=== PATIENT | male | born 1975 | race Caucasian/White ===

== ENCOUNTER 2016-12-12 08:01 | Emergency (ER) | payer MEDICAID ==
--- NOTE | 2016-12-12 09:33 | ED ---
Lower Extremity - History of Current Complaint Chief Complaint: EDExtremityLower Stated Complaint: RIGHT ANKLE PAIN Hx Obtained From: Patient Mechanism Of Injury: Twisted Onset/Duration: Still Present Severity Initially: Moderate Severity Currently: Severe Pain Intensity: 8 Associated Signs And Symptoms: Positive: Swelling Aggravating Factor(s): Standing, Movement Able to Bear Weight: Yes - Allergies/Home Medications Allergies/Adverse Reactions: Allergies Allergy/AdvReac Type Severity Reaction Status Date / Time Naproxen [From Aleve] Allergy Hives Verified 12/12/16 08:08 PMH/Surg Hx/FS Hx/Imm Hx Infectious Disease History: Denies: Traveled Outside the [place] in Last 30 Days Physical Exam Vital Signs On Initial Exam: Initial Vitals Temp Pulse Resp BP 97.7 F 79 18 156/85 12/12/16 08:05 12/12/16 08:05 12/12/16 08:05 12/12/16 08:05 Diagnostics - Vital Signs Vital Signs Temp Pulse Resp BP 12/12/16 08:05 97.7 F 79 18 156/85 - Laboratory Lab Statement: Any lab studies that have been ordered have been reviewed, and results considered in the medical decision making process.
--- NOTE | 2016-12-12 10:33 | RAD ---
Indication: RIGHT ankle lateral pain and swelling following inversion injury playing soccer. Comparison: No relevant prior exams available on the [facility] for comparison. Technique: AP, mortise, and lateral views RIGHT ankle. Report: Normal articular alignment. No cortical disruption or suspicious trabecular irregularity to suggest fracture. 0.5 cm transverse chronic appearing osteochondral lesion at the superior medial margin of the dome of the talus with suggestion of ossification of the overlying hyaline articular cartilage. No acute osteochondral fracture evident. No suggestion of talocrural joint effusion. Mild soft tissue swelling over the lateral malleolus. IMPRESSION: 1. Mild soft tissue swelling over the lateral malleolus without acute fracture or articular malalignment. 2. Chronic appearing osteochondral lesion at the superior medial margin of the dome of the talus.
--- NOTE | 2016-12-12 11:35 | RAD ---
INDICATION: Right foot injury. TECHNIQUE: 3 views of the right foot were obtained. FINDINGS: The bones are in normal alignment. No fracture is seen. Joint spaces appear maintained. IMPRESSION: NO EVIDENCE FOR FRACTURE.
[2016-12-12 11:47] VITALS: BP 128/75
--- NOTE | 2016-12-12 18:11 | ED ---
Neil Sofia Billy, scribed for Franklyn Mascorro MD on 12/12/16 at 1020 . Lower Extremity - HPI Summary HPI Summary: Patient is a 41 year-old male coming to [facility] for evaluation of right ankle pain since last night. He states that he was playing soccer with his children when he accidentally inverted and twisted the ankle. He is, however, able to bear weight, and he states that the pain is actually improved with very light pressure while walking. - History of Current Complaint Chief Complaint: EDExtremityLower Stated Complaint: RIGHT ANKLE PAIN Time Seen by Provider: 12/12/16 10:08 Hx Obtained From: Patient Mechanism Of Injury: Twisted Onset of Pain: Immediate Onset/Duration: Still Present Severity Initially: Moderate Severity Currently: Moderate Pain Intensity: 8 Pain Scale Used: 0-10 Numeric Timing: Constant Location: Is Discrete @ - right ankle Associated Signs And Symptoms: Positive: Swelling Alleviating Factor(s): Other - Improved while applying mild pressure when walking Able to Bear Weight: Yes - Allergies/Home Medications Allergies/Adverse Reactions: Allergies Allergy/AdvReac Type Severity Reaction Status Date / Time Naproxen [From Aleve] Allergy Hives Verified 12/12/16 08:08 PMH/Surg Hx/FS Hx/Imm Hx Sensory History: Denies: Hx Deafness Opthamlomology History: Denies: Hx Legally Blind Infectious Disease History: Denies: Traveled Outside the [place] in Last 30 Days - Family History Known Family History: Positive: Diabetes - Social History Alcohol Use: None Hx Substance Use: No Substance Use Type: Reports: None Review of Systems Negative: Fever Musculoskeletal: Other - right ankle pain All Other Systems Reviewed And Are Negative: Yes Physical Exam - Summary Physical Exam Summary: Vital signs: reviewed General: Patient is comfortable lying in stretcher with no signs of distress. Patient walked into the ED room. HEENT: within normal limits Lungs: CTA B/L CVS: S1 & S2 present. No murmurs appreciated. ABDOMEN: Soft, non-tender. No signs of distention. No rebound no guarding, and no masses palpated. Bowel sounds are normal. EXTREMITIES: FROM in all major joints, positive swelling in the right lateral maleolus. NEURO: Alert and oriented x 3. No acute neurological deficits. Speech is normal and follows commands. SKIN: Dry and warm Triage Information Reviewed: Yes Vital Signs On Initial Exam: Initial Vitals Temp Pulse Resp BP 97.7 F 79 18 156/85 12/12/16 08:05 12/12/16 08:05 12/12/16 08:05 12/12/16 08:05 Vital Signs Reviewed: Yes Diagnostics - Vital Signs Vital Signs Temp Pulse Resp BP Pulse Ox 12/12/16 09:59 98.2 F 72 16 144/81 100 12/12/16 08:05 97.7 F 79 18 156/85 - Laboratory Lab Statement: Any lab studies that have been ordered have been reviewed, and results considered in the medical decision making process. - Radiology Right Ankle Radiology Interpretation Completed By: Radiologist - 1. Mild soft tissue swelling over the lateral malleolus without acute fracture or articular malalignment. 2. Chronic appearing osteochondral lesion at the superior medial margin of the dome of the talus. Foot XR Radiology Interpretation Completed By: Radiologist - No evidence for fracture. Lower Extremity Course/Dx - Course Assessment/Plan: Patient is a 41 year-old male coming to [facility] [place] for evaluation of right ankle pain since last night. He states that he was playing soccer with his children when he accidentally inverted and twisted the ankle. He is, however , able to bear weight, and he states that the pain is actually improved with very light pressure while walking. XRay of the ankle and foot shows no fracture or dislocation. The patient did not require any pain medications as he is ambulating on his own. The patient was given an ELÍAS bandage and cane to follow up with PCP. - Diagnoses Provider Diagnoses: Ankle sprain Discharge - Discharge Plan Condition: Stable Disposition: HOME Patient Education Materials: Ankle Sprain (ED) Referrals: [facility] [place] PHYSICIAN REFERRAL [Outside] The documentation as recorded by the Neil arcos Billy accurately reflects the service I personally performed and the decisions made by me, Franklyn Mascorro MD.
== END 2016-12-12 11:46 | disposition home or self-care (01) ==
LOC: ED 08:01
DX: S93.401A Sprain of unspecified ligament of right ankle, initial encounter (principal); M25.571 Pain in right ankle and joints of right foot; X58.XXXA Exposure to other specified factors, initial encounter; Y93.9 Activity, unspecified; Y92.9 Unspecified place or not applicable
CPT/HCPCS: 99282

== ENCOUNTER 2018-01-12 09:11 | Emergency (ER) | payer MEDICAID, OTHER ==
--- NOTE | 2018-01-12 11:37 | RAD ---
HISTORY: pain, left elbow pain COMPARISONS: None VIEWS: 2, Frontal and lateral views of the left elbow FINDINGS: BONE DENSITY: Normal. BONES: There is no displaced fracture. JOINTS: There is no arthropathy. There is no posterior supracondylar fat pad to suggest a joint effusion. ALIGNMENT: There is no dislocation. SOFT TISSUES: Unremarkable. OTHER FINDINGS: None. IMPRESSION: NO ACUTE OSSEOUS INJURY. IF SYMPTOMS PERSIST, RECOMMEND REPEAT IMAGING.
--- NOTE | 2018-01-12 12:59 | ED ---
Upper Extremity Pain - HPI Summary HPI Summary: Pt here w/ Lt elbow pain which was triggered months ago by lifting a heavy cooler at work. [place] acute pain then and has had pain w/ lifting using his Lt arm since. Denies numbness/tingling/weakness and has FROM. Concerned about lingering pain with gripping and carrying. Denies pain w/o use and is sleeping well. Came here today as he reports it wasn't a good weather day to work - has a PCP but he's never been so decided to come to ED for evaluation. - History of Current Complaint Chief Complaint: EDExtremityUpper Stated Complaint: LT ELBOW PAIN Time Seen by Provider: 01/12/18 11:46 Hx Obtained From: Patient - Allergies/Home Medications Allergies/Adverse Reactions: Allergies Allergy/AdvReac Type Severity Reaction Status Date / Time naproxen Allergy Hives Verified 01/12/18 09:23 Home Medications: Home Medications NK [No Home Medications Reported] 01/12/18 [History Confirmed 01/12/18] PMH/Surg Hx/FS Hx/Imm Hx Previously Healthy: Yes Endocrine/Hematology History: Denies: Hx Anticoagulant Therapy, Hx Blood Disorders Sensory History: Denies: Hx Legally Blind, Hx Deafness Opthamlomology History: Denies: Hx Legally Blind Infectious Disease History: No Infectious Disease History: Denies: Traveled Outside the [place] in Last 30 Days - Family History Known Family History: Positive: Diabetes - Social History 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 Negative: Decreased ROM, Edema Skin: Negative Negative: Bruising Neurological: Negative Negative: Weakness, Paresthesia, Numbness Psychological: Normal All Other Systems Reviewed And Are Negative: Yes Physical Exam Triage Information Reviewed: Yes Vital Signs On Initial Exam: Initial Vitals Temp Pulse Resp BP Pulse Ox 97.8 F 76 16 137/89 96 01/12/18 09:21 01/12/18 09:21 01/12/18 09:21 01/12/18 09:21 01/12/18 09:21 Vital Signs Reviewed: Yes Appearance: Positive: Well-Appearing, No Pain Distress, Well-Nourished Skin: Positive: Warm, Skin Color Reflects Adequate Perfusion, Dry - no erythema , no ecchymosis over effected area Head/Face: Positive: Normal Head/Face Inspection Eyes: Positive: EOMI ENT: Positive: Hearing grossly normal Neck: Positive: Other: - FROM w/o pain or restriction Respiratory/Lung Sounds: Positive: Breath Sounds Present Cardiovascular: Positive: Pulses are Symmetrical in both Upper and Lower Extremities - no edema in UE's Musculoskeletal: Positive: Normal, Strength/ROM Intact - no areas are palpably tender - he reports some pain in forearm with full gripping strength Neurological: Positive: Normal, Sensory/Motor Intact, Alert, Oriented to Person Place, Time, CN Intact II-III Psychiatric: Positive: Normal Diagnostics - Vital Signs Vital Signs Temp Pulse Resp BP Pulse Ox 01/12/18 09:21 97.8 F 76 16 137/89 96 - Laboratory Lab Statement: Any lab studies that have been ordered have been reviewed, and results considered in the medical decision making process. Course/Dx - Diagnoses Provider Diagnoses: Elbow strain Discharge - Sign-Out/Discharge Documenting (check all that apply): Discharge/Admit/Transfer - Discharge Plan Condition: Stable Disposition: HOME Patient Education Materials: Elbow Sprain (ED) Referrals: Franklyn Mckee MD [Primary Care Provider] - Additional Instructions: You appear to have a strain/sprain of your Left elbow. Since you have ongoing pain over the past many months, it is advised that you seek follow-up with your PCP. From there, it may be decided if you would benefit from physical therapy and/or orthopedic referral. Rest, use heat with gentle stretches alternating with ice, ibuprofen with food alternating with acetaminophen as needed for pain. *If you develop numbness, tingling, weakness into your arm, seek medical attention sooner or return to ED - Billing Disposition and Condition Condition: STABLE Disposition: Home
[2018-01-12 13:10] VITALS: BP 136/85
== END 2018-01-12 13:09 | disposition home or self-care (01) ==
LOC: ED 09:11
DX: M25.522 Pain in left elbow (principal); X50.0XXA Overexertion from strenuous movement or load, initial encounter; Y92.9 Unspecified place or not applicable; Z88.6 Allergy status to analgesic agent
CPT/HCPCS: 99282

== ENCOUNTER 2018-12-30 07:34 | Emergency (ER) | payer OTHER ==
--- NOTE | 2018-12-30 07:57 | ED ---
HPI Chest Pain - HPI Summary HPI Summary: Pt is a 43 y/o M presenting to the ED with a chief complaint of chest pain ( shaky inside) onset around 0400, with his daughter Karyna. He states he woke up with a panic attack that did not go away over time, with associated chest tightness/shakiness, mild shortness of breath, tightness in his L arm and all fingers, and lightheadedness. He denies diaphoresis, nausea, SI/HI, or recent trauma. He states he has hx of anxiety but his panic attacks come on randomly and do not usually present with chest/arm tightness, and this one "lasted longer" so he began worrying it was an issue with his heart. He used to see a counselor for his anxiety and was on an SSRI and Klonopin, but he has stopped going to his counselor because he is in a better place than when he began. Pt hasn't seen his PCP (Dr. Mckee) recently. He did not take any medication SIDE PULLER, and does not take any daily medications. He is a former smoker. - History of Current Complaint Chief Complaint: EDChestPainROMI Time Seen by Provider: 12/30/18 07:42 Hx Obtained From: Patient Onset/Duration: Started Hours Ago, Still Present Timing: Intermittent, Lasting Hours Initial Severity: Moderate Current Severity: Moderate Pain Intensity: 4 Pain Scale Used: 0-10 Numeric Chest Pain Location: Diffuse Chest Pain Radiates: Yes Chest Pain Radiates To:: Arm - L Character: Tightness Aggravating Factor(s): Nothing Alleviating Factor(s): Nothing Associated Signs and Symptoms: Positive: Chest Pain, Anxiety, Shortness of Breath, Lightheadedness, Other: - L arm tightness. Negative: Diaphoresis, Nausea - Allergy/Home Medications Allergies/Adverse Reactions: Allergies Allergy/AdvReac Type Severity Reaction Status Date / Time naproxen Allergy Hives Verified 01/12/18 09:23 PMH/Surg Hx/FS Hx/Imm Hx Previously Healthy: Yes Endocrine/Hematology History: Denies: Hx Anticoagulant Therapy, Hx Blood Disorders, Hx Diabetes Cardiovascular History: Denies: Hx Myocardial Infarction History: Denies: Hx Acute Renal Failure Sensory History: Denies: Hx Legally Blind, Hx Deafness Opthamlomology History: Denies: Hx Legally Blind Psychiatric History: Reports: Hx Anxiety Infectious Disease History: No Infectious Disease History: Denies: Traveled Outside the [place] in Last 30 Days - Family History Known Family History: Positive: Diabetes - Social History Occupation: Employed Full-time - [employer] Lives: With Family Alcohol Use: Occasionally Hx Substance Use: No Substance Use Type: Reports: None Hx Tobacco Use: No Smoking Status (MU): Former Smoker - quit 08/2017 Review of Systems Constitutional: Negative Negative: Skin Diaphoresis Eyes: Negative ENT: Negative Positive: Chest Pain Positive: Shortness Of Breath Negative: Nausea Positive: Other - L arm tightness Neurological: Other - lightheadedness Positive: Anxious All Other Systems Reviewed And Are Negative: Yes Physical Exam - Summary Physical Exam Summary: Vital Signs Reviewed: Yes A+Ox3, hyperventialting and anxious. With conversation and coaching - improved Eyes: Conjunctiva Clear, HONG. EOM intact and full ENT: Hearing grossly normal TM x 2 clear, mmoist, uvula midline, no exudate, no erythema Neck: Positive: Supple Respiratory: Positive: Hyperventilating, No respiratory distress, No accessory muscle use + CTA throughout no w/r, no reproducible pain. Cardiovascular: RRR nl s1, s2 no m/r CBT <2 sec, No bruit b/l abd soft + BS nt/nd no guarding, no distension Musculoskeletal Exam: BENITEZ x 4 without difficulty Strength Intact, ROM Intact Neurological: Positive: Alert, + sensation throughout Psychological: Positive: Normal Response To Family Skin: Positive: no rash, no ecchymosis Triage Information Reviewed: Yes Vital Signs On Initial Exam: Initial Vitals Temp Pulse Resp BP Pulse Ox 98.0 F 103 20 152/100 94 12/30/18 07:42 12/30/18 07:42 12/30/18 07:42 12/30/18 07:42 12/30/18 07:42 Vital Signs Reviewed: Yes Diagnostics - Vital Signs Vital Signs Temp Pulse Resp BP Pulse Ox 12/30/18 07:42 98.0 F 103 20 152/100 94 - Laboratory Result Diagrams: 12/30/18 08:04 12/30/18 08:04 Lab Statement: Any lab studies that have been ordered have been reviewed, and results considered in the medical decision making process. - EKG 0742 Cardiac Rate: NL - 89bpm EKG Rhythm: Sinus Rhythm ST Segment: Non-Specific Ectopy: None Summary of EKG Findings: EKG at 0742 shows NSR at 89bpm with an inverted T-wave in lead III and no other acute ST-T wave changes. Re-Evaluation - Re-Evaluation First Eval Re-Evaluation Time: 08:21 Change: Improved Comment: Pt VSS states feels "so much better" Pt wtih mild sensation of shaking in his chest, arm sx resolved VSS reviewed CxR 2nd re-eval Re-Evaluation Time: 08:45 Change: Improved Comment: I discussed the lab results with the pt and told him they were normal. He states he feels completely better and that his sx are resolved. He denied anything to eat and his vital signs are stable.Awaiting TSH and follow-up appt with Dr. Mckee Third Eval Change: Improved - Sx free, texting follow-up appt Dr. Mckee Fri 10:40am Pt comfortable with plan will discharge - strict return precautions Chest Pain Course/Dx - Course Assessment/Plan: Patient presents emergency department with his daughter to ED . Patient states he woke from sleep around 4 AM with a panic attack. Patient states this panic attack lasted longer than normal he develops chest discomfrot - tingling inside and left arm squeezing/shaky. Patient states he became concerned this could be his heart pain emergency permit. Patient without diaphoresis. Patient reports mild shortness of breath. Patient without history of similar. Patient does not have a PCP and is in no medications. Patient without history of cardiac disease. On exam vital signs noted elevated blood pressure. Patient mildly anxious but no focal findings on physical assessment. EKG with some nonspecific findings but does not represent an ST elevation WI. We will give patient aspirin, check labs including troponin and CK, portable chest x-ray, and close reassessment . Patient comfortable in agreement with plan. Pt with coaching and focused breathing RR improved <20, BP normalized, Hr 80s, and arm sx resolved and chest "less shaky" will continue to monitor. Low suspicion for cardiac - if trop neg (3.5 hours of sx) anticipate discharge with PCP f/u. Elevated BP - related to condition - pt will f/u with PCP o - Diagnoses Provider Diagnoses: Hyperventilating, Nonspecific chest pain Discharge - Sign-Out/Discharge Documenting (check all that apply): Patient Departure Patient Received Moderate/Deep Sedation with Procedure: No - Discharge Plan Condition: Stable Disposition: HOME Forms: *Work Release Referrals: Franklyn Mckee MD [Primary Care Provider] - (01/01/19 at 10:40am) Additional Instructions: - Stay well hydrated. Drink plenty of non-caffinated, non-alcoholic beverages - Eat regular, healthy meals - get plenty of restful sleeps - slow, deep breaths focused breaths are important for controlling your panic - If your symptoms return, you have any concerns or new symptoms you should return to the emergency department or call 911 - You have a follow-up appointment scheduled with Dr. Mckee on XXx It is very important that you keep this appointment. Please contact his office if you need to reschedule - Billing Disposition and Condition Condition: STABLE Disposition: Home - Attestation Statements Document Initiated by Scribe: Yes Documenting Scribe: Rosa Grant Provider For Whom Gino is Documenting (Include Credential): Aspen Schaeffer MD. Scribe Attestation: IRosa, scribed for Aspen Schaeffer MD. on 12/30/18 at 0916. Scribe Documentation Reviewed: Yes Provider Attestation: The documentation as recorded by the Rosa arcos accurately reflects the service I personally performed and the decisions made by me, Aspen Schaeffer MD. Status of Scribe Document: Viewed Consult Consult: [id number] - I spoke with the physician referral center to get the pt a followup appointment with his PCP this week.
[2018-12-30 08:17] LABS: ABS Lymphocytes 1.4 10^3/ul (1.0-4.8); ABS Monocytes 0.6 10^3/ul (0-0.8); ABS Neutrophils 6.8 10^3/ul (1.5-7.7); Eosinophil % 0.4 %; Hematocrit 45 % (42-52); Hemoglobin 15.5 g/dL (14.0-18.0); Lymphocyte % 16.1 %; Mean Corpuscular HGB Conc 34 g/dL (31-36); Mean Corpuscular Hemoglobin 30 pg (27-31); Mean Corpuscular Volume 88 fL (80-94); Mean Platelet Volume 8.9 fL (7.4-10.4); Nucleated Red Blood Cells % 0.3; Platelet Count 248 10^3/uL (150-450); Red Blood Count 5.14 10^6 /uL (4.18-5.48); Red Cell Distribution Width 13 % (10.5-15); White Blood Count 8.8 10^3/uL (3.5-10.8)
[2018-12-30] MEDS ORDERED: Aspirin 81 mg CHEW TAB* 81 MG TAB.CHEW PO ONE (08:18)
[2018-12-30 08:40] LABS: Albumin 4.4 g/dL (3.2-5.2); Albumin/Globulin Ratio 1.4 (1-3); BUN/Creatinine Ratio 9.2 (8-20); Calcium 9.6 mg/dL (8.6-10.3); EGFR African American 90.2 (>60); EGFR Non-African American 74.6 (>60); Globulin 3.2 g/dL (2-4); Magnesium 1.9 mg/dL (1.9-2.7); Total Bilirubin 0.8 mg/dL (0.2-1.0); Total Protein 7.6 g/dL (6.4-8.9)
[2018-12-30 08:42] LABS: CKMB ng/mL 2.3 ng/mL (0.6-6.3)
[2018-12-30 09:04] LABS: TSH (Thyroid Stimulating Horm) 1.27 mcIU/mL (0.34-5.60)
[2018-12-30 09:29] VITALS: BP 142/93
== END 2018-12-30 09:35 | disposition home or self-care (01) ==
LOC: ED 07:34
DX: R06.4 Hyperventilation (principal); R07.89 Other chest pain; Z88.6 Allergy status to analgesic agent; Z87.891 Personal history of nicotine dependence
CPT/HCPCS: 36415; 71045; 80053; 82550; 82553; 83735; 84443; 84484; 85025; 93005; 99283; A9270-GY

== ENCOUNTER 2019-02-05 23:40 | Emergency (ER) | payer OTHER ==
--- OUTSIDE RECORDS SUMMARY | 2019-02-06 00:19 | XMS REPORT | Continuity of Care Document ---
:1975 External Reference #:[id number] Author Name Lesly Kasper Care Team Providers Name Role Phone Franklyn Mckee III, MD Primary Care Physician Unavailable Payers Date Identification Numbers Payment Provider Subscriber Policy Number: [id number] Baljeet Sahu PayID: [id number] [address] [place] [id number] PayID: [id number] Workers Compensation Santiago Sahu Family History Date Family Member(s) Observation Comments General Diabetes General Cancer Social History Type Date Description Comments Sex Unknown Marital Status Single Lives With Children Occupation Currently Working [employer] ETOH Use Occasionally consumes alcohol Tobacco Use Start: Unknown End: Patient is a former Quit age 42; max Unknown smoker 1ppd, 1/2 ppd typical. Began age 11 Recreational Drug Use Sporadically uses Marijuana Smoking Status Reviewed: 01/15/19 Patient is a former Quit age 42; max smoker 1ppd, 1/2 ppd typical. Began age 11 Exercise Type/Frequency Exercises regularly very active at work Allergies, Adverse Reactions, Alerts Active Allergies Reaction Severity Comments Date Omar daniel 01/01/2019 Vital Signs Date Vital Result Comment 01/15/2019 9:10am Height 69 inches 5'9" Weight 258.00 lb Heart Rate 76 /min BP Systolic 110 mmHg BP Diastolic 80 mmHg Respiratory Rate 16 /min Pain Level 1 BMI (Body Mass Index) 38.1 kg/m2 01/01/2019 10:57am Height 69 inches 5'9" Weight 257.00 lb Heart Rate 67 /min BP Systolic Sitting 128 mmHg BP Diastolic Sitting 89 mmHg BMI (Body Mass Index) 37.9 kg/m2 Results Test Date Facility Test Result H/L Range Note CBC Auto Diff 12/30/2018 [facility] White Blood 8.8 10^3/uL N 3.5-10.[address] [place] [address] [phone] Red Blood Count 5.14 10^6/uL N 4.18-5.48 Hemoglobin 15.5 g/dL N 14.0-18.0 Hematocrit 45 % N 42-52 Mean Corpuscular Volume 88 fL N 80-94 Mean Corpuscular Hemoglobin 30 pg N 27-31 Mean Corpuscular HGB Conc 34 g/dL N 31-36 Red Cell Distribution Width 13 % N 10.5-15 Platelet Count 248 10^3/uL N 150-450 Mean Platelet Volume 8.9 fL N 7.4-10.4 Abs Neutrophils 6.8 10^3/uL N 1.5-7.7 Abs Lymphocytes 1.4 10^3/uL N 1.0-4.8 Abs Monocytes 0.6 10^3/uL N 0-0.8 Abs Eosinophils 0.0 10^3/uL N 0-0.6 Abs Basophils 0.0 10^3/uL N 0-0.2 Abs Nucleated RBC 0.0 10^3/uL Granulocyte % 76.7 % Lymphocyte % 16.1 % Monocyte % 6.4 % Eosinophil % 0.4 % Basophil % 0.4 % Nucleated Red Blood Cells % 0.3 Comp Metabolic Panel 12/30/2018 [facility] Sodium 139 mmol/L N 135-[address] [place] [address] [phone] Potassium 4.0 mmol/L N 3.5-5.0 Chloride 106 mmol/L N 101-111 Co2 Carbon Dioxide 22 mmol/L N 22-32 Anion Gap 11 mmol/L N 2-11 Glucose 106 mg/dL High 70-100 Blood Urea Nitrogen 10 mg/dL N 6-24 Creatinine 1.09 mg/dL N 0.67-1.17 BUN/Creatinine Ratio 9.2 N 8-20 Calcium 9.6 mg/dL N 8.6-10.3 Total Protein 7.6 g/dL N 6.4-8.9 Albumin 4.4 g/dL N 3.2-5.2 Globulin 3.2 g/dL N 2-4 Albumin/Globulin Ratio 1.4 N 1-3 Total Bilirubin 0.80 mg/dL N 0.2-1.0 Alkaline Phosphatase 82 U/L N 34-104 Alt 46 U/L N 7-52 Ast 36 U/L N 13-39 Egfr Non- 74.6 >60 Egfr 90.2 >60 1 Laboratory test 12/30/2018 [facility] Magnesium 1.9 mg/dL N 1.9-2.[address] [place] [address] [phone] Creatine Kinase(CK) 157 U/L N 10-223 Troponin-I (TnI) 0.00 ng/mL <0.04 2 CKMB 12/30/2018 [facility] CKMB ng/mL 2.3 ng/mL N 0.6-6.[address] [place] [address] [phone] Laboratory test 12/30/2018 [facility] TSH 1.27 N 0.34-5.[address] (Thyroid mcIU/mL [place], [place] [id number] [facility]) [phone] 1 Because ethnic data is not always readily available, this report includes an eGFR for both -Americans and non- Americans. The National Kidney Disease Education Program (NKDEP) does not endorse the use of the MDRD equation for patients that are not between the ages of 18 and 70, are , have extremes of body size, muscle mass, or nutritional status, or are non- or non-. According to the National Kidney Foundation, irrespective of diagnosis, the stage of the disease is based on the level of kidney function: Stage Description GFR(mL/min/1.73 m(2)) 1 Kidney damage with normal or decreased GFR 90 2 Kidney damage with mild decrease in GFR 60-89 3 Moderate decrease in GFR 30-59 4 Severe decrease in GFR 15-29 5 Kidney failure <15 (or dialysis) 2 Troponin-I testing on Plasma Separator Tubes (PST) has a known false positive rate of 0.20-0.40%. All positive troponins reflex immediately to secondary confirmatory testing. Using the [employer] DxI 800 Access Immunoassay systems, the 99th percentile upper reference limit was demonstrated to be < 0.03 ng/mL. Encounters Type Date Location Provider Dx Diagnosis Office Visit 01/01/2019 [facility] Franklyn Mckee, F41.0 Panic disorder 10:40a Medicine - [facility] [episodic paroxysmal anxiety] M79.631 Pain in right forearm R20.2 Paresthesia of skin Z13.220 Encounter for screening for lipoid disorders Z13.1 Encounter for screening for diabetes mellitus Plan of Treatment Future Appointment(s):02/09/2019 9:00 am - Yesi Hi MD at [facility]01/15/2019 - Yesi Hi, MDM25.511 Pain in right shoulderFollow up:Follow up: 3-4 kmpkeJ82.41 Impingement syndrome of right [id number] Carpal tunnel syndrome, right upper limb
[2019-02-06] MEDS ORDERED: NS 0.9% 1000 ML** 1,000 ML IV ONE (00:37)
[2019-02-06 01:06] LABS: Hematocrit 44 % (42-52); Hemoglobin 14.7 g/dL (14.0-18.0); Mean Corpuscular HGB Conc 34 g/dL (31-36); Mean Corpuscular Hemoglobin 31 pg (27-31); Mean Corpuscular Volume 92 fL (80-94); Mean Platelet Volume 8.9 fL (7.4-10.4); Platelet Count 186 10^3/uL (150-450); Red Blood Count 4.73 10^6 /uL (4.18-5.48); Red Cell Distribution Width 13 % (10-15); White Blood Count 10.3 10^3/uL (3.5-10.8)
[2019-02-06 01:22] LABS: Albumin 4.2 g/dL (3.2-5.2); Albumin/Globulin Ratio 1.3 (1-3); BUN/Creatinine Ratio 14.6 (8-20); C Reactive Protein 4.12 mg/L (<8.01); Calcium 9.3 mg/dL (8.6-10.3); EGFR African American 104.4 (>60); EGFR Non-African American 86.3 (>60); Globulin 3.2 g/dL (2-4); Potassium 4.1 mmol/L (3.5-5.0); Total Bilirubin 0.8 mg/dL (0.2-1.0); Total Protein 7.4 g/dL (6.4-8.9)
[2019-02-06 01:55] LABS: ABS Monocytes 0.5 10^3/ul (0-0.8); ABS Neutrophils 8.8 10^3/ul (1.5-7.7); Eosinophil % 0.4 %; Lymphocyte % 9.7 %
--- NOTE | 2019-02-06 02:15 | ED ---
Neck Pain - HPI Summary HPI Summary: 43-year-old male presents via EMS with complaints of sudden onset of posterior neck pain at the base of his skull is evening. Patient states that he has been having some mild neck pain and stiffness for the past week which she attributes to some of the prolonged bending and heavy lifting that he has to do at work. States he first noticed a little discomfort right after work but then developed sudden severe pain at the base of his skull. States he became very anxious and began having nausea and vomiting due to the severity of the pain. His daughter called EMS who noted that he was still vomiting upon their arrival. Patient received ondansetron for the nausea and vomiting but refused any pain medication. Denies fever, chills, rash, headache, visual disturbances, slurred or difficulty speaking, numbness, tingling, weakness of the extremities, chest pain, shortness of breath, or abdominal pain. - History of Current Complaint Chief Complaint: EDNeckComplaint Stated Complaint: NECK PAIN PER EMS Time Seen by Provider: 02/06/19 00:22 Hx Obtained From: Patient Pain Intensity: 10 - Allergies/Home Medications Allergies/Adverse Reactions: Allergies Allergy/AdvReac Type Severity Reaction Status Date / Time naproxen [From Aleve] AdvReac Hives Verified 02/05/19 23:53 PMH/Surg Hx/FS Hx/Imm Hx Previously Healthy: Yes Endocrine/Hematology History: Denies: Hx Anticoagulant Therapy, Hx Blood Disorders, Hx Diabetes Cardiovascular History: Denies: Hx Myocardial Infarction History: Denies: Hx Acute Renal Failure Sensory History: Denies: Hx Legally Blind, Hx Deafness Opthamlomology History: Denies: Hx Legally Blind Psychiatric History: Reports: Hx Anxiety, Hx Panic Disorder - Surgical History Surgical History: None Infectious Disease History: No Infectious Disease History: Denies: Traveled Outside the [place] in Last 30 Days - Family History Known Family History: Positive: Diabetes - Social History Occupation: Employed Full-time Lives: With Family Alcohol Use: Occasionally Hx Substance Use: No Substance Use Type: Reports: Marijuana Substance Use Comment - Amount & Last Used: used 02/04/19 Hx Tobacco Use: No Smoking Status (MU): Former Smoker Review of Systems Negative: Fever, Chills Negative: Photophobia, Blurred Vision, Diplopia Negative: Sore Throat Negative: Palpitations, Chest Pain Negative: Shortness Of Breath, Cough Positive: Vomiting, Nausea. Negative: Abdominal Pain, Diarrhea Positive: no symptoms reported Positive: Other - See HPI Negative: Rash Negative: Headache, Weakness, Paresthesia, Numbness, Slurred Speech All Other Systems Reviewed And Are Negative: Yes Physical Exam - Summary Physical Exam Summary: GENERAL APPEARANCE: Well developed, well nourished, alert and cooperative. HEAD: Atraumatic. Normocephalic. EYES: Conjunctiva clear. No drainage. PERRL, EOM intact. Vision is grossly intact. EARS: External auditory canals and tympanic membranes clear, hearing grossly intact. NOSE: No nasal discharge. THROAT: Pharynx normal. No tonsilar inflammation, swelling, exudate, or lesions. Uvula midline. NECK: Neck supple, non-tender without lymphadenopathy. No midline or paraspinous tenderness. Complains of mild pain with flexion otherwise normal ROM. CARDIAC: Normal S1 and S2. No S3, S4 or murmurs. Rhythm is regular. There is no peripheral edema, cyanosis or pallor. Extremities are warm and well perfused. Capillary refill is less than 2 seconds. Peripheral pulses intact. LUNGS: Clear to auscultation without rales, rhonchi, wheezing or diminished breath sounds. ABDOMEN: Positive bowel sounds. Soft, nondistended, nontender. No guarding or rebound. No masses or hepatosplenomegally. MUSKULOSKELETAL: ROM intact to all extremities. No joint erythema or tenderness. Normal muscular development. Normal gait. BACK: Examination of the spine reveals no midline spinal deformity or tenderness. NEUROLOGICAL: CN II-XII intact. Strength and sensation symmetric and intact throughout. Reflexes 2+ throughout. Cerebellar testing normal. SKIN: Skin normal color, texture and turgor with no lesions or eruptions. Triage Information Reviewed: Yes Vital Signs On Initial Exam: Initial Vitals Temp Pulse Resp BP Pulse Ox 97.9 F 74 24 142/93 98 02/05/19 23:45 02/05/19 23:45 02/05/19 23:45 02/05/19 23:45 02/05/19 23:45 Vital Signs Reviewed: Yes Diagnostics - Vital Signs Vital Signs Temp Pulse Resp BP Pulse Ox 02/06/19 01:18 77 149/95 96 02/06/19 01:13 79 96 02/06/19 00:19 69 137/86 96 02/06/19 00:13 16 02/06/19 00:06 84 93 02/06/19 00:01 76 79 02/05/19 23:49 72 142/93 89 02/05/19 23:45 97.9 F 74 24 142/93 98 - Laboratory Lab Results: Lab Results 02/06/19 02/06/19 Range/Units 00:57 00:57 WBC 10.3 (3.5-10.8) 10^3/uL RBC 4.73 (4.18-5.48) 10^6 /uL Hgb 14.7 (14.0-18.0) g/dL Hct 44 (42-52) % MCV 92 (80-94) fL MCH 31 (27-31) pg MCHC 34 (31-36) g/dL RDW 13 (10-15) % Plt Count 186 (150-450) 10^3/uL MPV 8.9 (7.4-10.4) fL Neut % (Auto) 84.7 % Lymph % (Auto) 9.7 % [place] % (Auto) 5.0 % Eos % (Auto) 0.4 % Baso % (Auto) 0.2 % Absolute Neuts (auto) 8.8 H (1.5-7.7) 10^3/ul Absolute Lymphs (auto) 1.0 (1.0-4.8) 10^3/ul Absolute Monos (auto) 0.5 (0-0.8) 10^3/ul Absolute Eos (auto) 0.0 (0-0.6) 10^3/ul Absolute Basos (auto) 0.0 (0-0.2) 10^3/ul Absolute Nucleated RBC 0.0 10^3/ul Nucleated RBC % 0.0 Sodium 138 (135-145) mmol/L Potassium 4.1 (3.5-5.0) mmol/L Chloride 109 (101-111) mmol/L Carbon Dioxide 20 L (22-32) mmol/L Anion Gap 9 (2-11) mmol/L BUN 14 (6-24) mg/dL Creatinine 0.96 (0.67-1.17) mg/dL Est GFR ( Amer) 104.4 (>60) Est GFR (Non-Af Amer) 86.3 (>60) BUN/Creatinine Ratio 14.6 (8-20) Glucose 118 H (70-100) mg/dL Calcium 9.3 (8.6-10.3) mg/dL Total Bilirubin 0.80 (0.2-1.0) mg/dL AST 27 (13-39) U/L ALT 38 (7-52) U/L Alkaline Phosphatase 85 (34-104) U/L C-Reactive Protein 4.12 (<8.01) mg/L Total Protein 7.4 (6.4-8.9) g/dL Albumin 4.2 (3.2-5.2) g/dL Globulin 3.2 (2-4) g/dL Albumin/Globulin Ratio 1.3 (1-3) Result Diagrams: 02/06/19 00:57 02/06/19 00:57 Lab Statement: Any lab studies that have been ordered have been reviewed, and results considered in the medical decision making process. - CT No standard instances CT Interpretation Completed By: Radiologist Summary of CT Findings: EXAM: CT Head Without Contrast. EXAM DATE/TIME: 2018 1:07 AM. CLINICAL HISTORY: 43 years old, male; Other: Pain at base of skull; Additional info: Sudden onset pain base of skull, vomiting. TECHNIQUE: Imaging protocol: Axial computed tomography images of the head without contrast. Radiation optimization: All CT scans at this facility use at least one of these dose optimization techniques: automated exposure control; mA and/ or kV adjustment per patient size (includes targeted exams where dose is matched to clinical indication); or iterative reconstruction. COMPARISON: No relevant prior studies available. FINDINGS: Brain: No acute ischemic changes, extra axial fluid collections, intraparenchymal hemorrhage, or midline shift. Ventricles: Normal. No ventriculomegaly. Bones/joints: Normal. No acute fracture. Sinuses: Visualized sinuses are normal. No acute sinusitis. Mastoid air cells: Visualized mastoid air cells are normal. No mastoid effusion. Soft tissues: Normal. IMPRESSION: No acute intracranial abnormality. Re-Evaluation - Re-Evaluation First Eval Re-Evaluation Time: 02:15 Change: Improved Comment: Patient states that his neck pain has improved. States he still has mild aching but that the pain is tolerable at this time. He has had no further episodes of nausea or vomiting. He remains neurologically intact. Patient is requesting to be discharged at this time. Neck Course/Dx - Course Course Of Treatment: 43-year-old male presents via EMS with complaints of sudden onset of posterior neck pain at the base of his skull is evening. Patient states that he has been having some mild neck pain and stiffness for the past week which she attributes to some of the prolonged bending and heavy lifting that he has to do at work. States he first noticed a little discomfort right after work but then developed sudden severe pain at the base of his skull. States he became very anxious and began having nausea and vomiting due to the severity of the pain. His daughter called EMS who noted that he was still vomiting upon their arrival. Patient received ondansetron for the nausea and vomiting but refused any pain medication. Denies fever, chills, rash, headache, visual disturbances, slurred or difficulty speaking, numbness, tingling, weakness of the extremities, chest pain, shortness of breath, or abdominal pain. Patient was initially hypertensive and mildly tachycardic but had otherwise stable vital signs. His blood pressure and pulse did normalize over the course of his stay. Patient had no midline or paraspinous tenderness, he did report mild pain with flexion otherwise had normal cervical ROM, he was neurologically intact, and otherwise had an unremarkable exam. Patient refused pain medication and his nausea and vomiting had subsided at the time of his exam. CBC, CMP, and C-reactive protein were all essentially normal. CT scan of the brain showed no acute pathology. I reviewed these results with the patient. Patient states that his pain improved over the course of his stay. He continued report some mild aching however stated that the pain was quite tolerable. He had no further episodes of nausea or vomiting during the course of his stay. Recommending conservative treatment for a likely cervical strain. Patient is to follow-up with his primary care provider in 3 days especially if symptoms are not improving. Anticipatory guidance and warning symptoms that would require immediate evaluation in the ER were reviewed with the patient. Verbalizes understanding and agrees with plan of care. - Diagnoses Differential Dx/HQI/PQRI: Positive: Intracranial Bleed, Meningitis, Strain Provider Diagnoses: Acute neck pain Discharge - Sign-Out/Discharge Documenting (check all that apply): Patient Departure Patient Received Moderate/Deep Sedation with Procedure: No - Discharge Plan Condition: Stable Disposition: HOME Patient Education Materials: Acute Neck Pain (ED) Referrals: Franklyn Mckee MD [Primary Care Provider] - 3 Days Additional Instructions: The CT scan and lab work that was performed in the emergency room were normal. I suspect that your neck pain may be from a strain secondary to the type of work that you performed. Take acetaminophen (Tylenol) or ibuprofen (Advil, Motrin) according to directions as needed for pain. Try using a heating pad for 15-20 minutes at least 4 times a day to the affected area to help with the pain. Follow-up with your primary care provider in 3 days for recheck especially if symptoms are not improving. Return to the emergency room if you develop a fever greater than 100.5 F, have a sudden severe headache, visual disturbances, slurred or difficulty speaking, weakness, numbness, or tingling in her extremities, worsening neck pain, persistent or projectile vomiting, or any worsening of symptoms. - Billing Disposition and Condition Condition: STABLE Disposition: Home
[2019-02-06 02:23] VITALS: BP 121/88
== END 2019-02-06 02:23 | disposition home or self-care (01) ==
LOC: ED 23:40
DX: M54.2 Cervicalgia (principal); R11.2 Nausea with vomiting, unspecified; Z87.891 Personal history of nicotine dependence
CPT/HCPCS: 36415; 70450; 80053; 83605; 85025; 86140; 87040; 96360; 96361; 99283